=== PATIENT | male | born 1990 | race Caucasian/White ===

== ENCOUNTER 2021-07-03 10:12 | Emergency (ER) | payer OTHER ==
[~2021-07-03] VITALS: Ht 193 cm; Wt 127.0 kg
[2021-07-03 12:21] VITALS: BP 145/85
== END 2021-07-03 12:22 | disposition home or self-care (01) ==
LOC: M.ERS 10:12
DX: U07.1 COVID-19 (principal); F17.210 Nicotine dependence, cigarettes, uncomplicated